=== PATIENT | female | born 1990 | race Two or more races ===

== ENCOUNTER → 2021-04-23 | Outpatient (CLI) | payer OTHER ==
--- NOTE | 2021-04-26 10:52 | KCIC ---
EXAMINATION: MRI RIGHT UPPER EXTREMITY JOINT WITHOUT CONTRAST INDICATIONS: Ganglion cyst. History of 2 benign cyst removed, left surgery 03/10/2020 TECHNIQUE: Multiplanar multisequence MRI of the right wrist was obtained without contrast. COMPARISON: None. FINDINGS: BONES AND CARTILAGE: No acute fracture. Marrow signal is normal. Articular cartilage is maintained. LIGAMENTS: The scapholunate and lunotriquetral ligaments are intact. Triangular fibrocartilage comple x is intact. TENDONS: The flexor and extensor tendons are intact. No tenosynovitis.. OTHER: There is a 1.9 x 1.4 x 1.3 cm lobulated ganglion cyst along the dorsal carpus with a neck that appears to arise from the mid carpal joint near the articulation of the scaphoid, lunate, and capita te. The ganglion cyst extends between the extensor carpi radialis brevis and extensor digitorum tendo ns. There are vessels coursing immediately adjacent to this cyst. There is an additional small ganglion cyst at the volar aspect of the radial styloid measuring 0.5 x 0.3 x 0.4 cm (image 8, series 9). This is in close proximity to the radial artery. Muscles and subcutaneous soft tissue are normal. Median and ulnar nerves are normal. IMPRESSION: 1. 1.9 cm ganglion cyst along the dorsal carpus extending between the extensor carpi radialis brevis and digitorum tendons. There are vessels coursing immediately adjacent to this cyst. 2. 0.5 cm ganglion cyst along the volar radial styloid. The radial artery courses adjacent to this cy st. Electronically signed by: Reina Mckeon MD (04/26/2021 10:50 AM) [id number]
== END ==
LOC: KCIC MRI 15:17
PROVIDERS: ATTEND Orthopaedic Surgery
DX: M67.431 Ganglion, right wrist (principal); M25.431 Effusion, right wrist
CPT/HCPCS: 73221